=== PATIENT | female | born 2000 ===

== ENCOUNTER 2021-10-14 15:30 | Inpatient (IN) | payer MEDICAID ==
[~2021-10-14] VITALS: Ht 180.3 cm; Wt 53.0 kg
[2021-10-14 21:24] VITALS: BP 118/62
[2021-10-14] MEDS ORDERED: NO HOME MEDS (21:58)
[2021-10-14] MEDS ORDERED: mag hydrox/Alum hydrox/simeth 30ml oral suspension PO PRN (22:00)
[2021-10-14] MEDS ORDERED: magnesium hydroxide 30ml (MOM) UD suspension PO PRN (22:00)
[2021-10-14] MEDS ORDERED: loperamide 2mg capsule PO PRN (22:00)
[2021-10-14] MEDS ORDERED: acetaminophen 325mg tablet PO PRN (22:00)
[2021-10-14] MEDS: LORazepam 1 MG tablet PO PRN (22:12)
[2021-10-14] MEDS: traZODone 50mg tablet PO PRN (22:12)
[2021-10-14] MEDS: NICOTINE POLACRILEX 2 MG LOZENGE BC PRN (22:19)
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
[2021-10-15 08:00] VITALS: BP 130/83
[2021-10-15] MEDS: nicotine 21mg patch - 24 hr TD SCH (08:18)
[2021-10-15 09:29] VITALS: BP 130/83
[2021-10-15] MEDS: LORazepam 1 MG tablet PO PRN ×2 (11:29→20:10)
--- NOTE | 2021-10-15 11:29 | NUR ---
Malnutrition consult: Pt unsure of wt loss though with decreased appetite per malnutrition risk screen with RN. Current BMI is underweight using scaled wt of 53 kg, though no wt hx in EMR to assess for any changes in wt. Per physical assessment pt with no decrease in muscle strength or edema. Pending physician notes and documentation of PO intake on regular diet. Unable to fully assess nutrition status at this time. Will f/u once more information is available. Addendum: 10/15/21 at [address] Amended: Links added.
[2021-10-15 12:48] LABS: HEMOGLOBIN A1C 5.5 % (4.5-6.2)
[2021-10-15 12:52] LABS: CHOLESTEROL 107 MG/DL (0-200); HDL CHOLESTEROL 54 MG/DL (35-60); LDL CHOLESTEROL 39 MG/DL (50-100); TRIGLYCERIDES 82 MG/DL (20-135)
[2021-10-15] MEDS ORDERED: ESCITALOPRAM OXALATE 5 MG TABLET PO ONE (14:30)
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
[2021-10-15 18:48] LABS: CLARITY,URINE CLEAR (Clear); COLOR,URINE YELLOW (Yellow); GLUCOSE, URINE NEGATIVE (Neg); KETONES,URINE NEGATIVE (Neg); LEUKOCYTE ESTERASE ,URINE NEGATIVE (Neg); NITRITES, URINE NEGATIVE (Neg); OCCULT BLOOD,URINE TRACE-INTACT (Neg); PROTEIN,URINE NEGATIVE (Neg); UROBILINOGEN,URINE 0.2 E.U/dL (0.2-1.0)
[2021-10-15 18:59] LABS: UA COLLECTION TYPE CLN CATCH MIDSTREAM
[2021-10-15 19:02] VITALS: BP 112/71
[2021-10-15 19:04] LABS: RBC,URINE 0-2 /HPF (0-2); WBC,URINE 0-4 /HPF (0-4)
[2021-10-15 19:05] LABS: BACTERIA,URINE FEW /HPF (Neg); MUCUS STRANDS NONE SEEN /LPF (Neg); SQUAMOUS EPITHELIAL CELL,UR FEW /LPF (FEW)
[2021-10-15] MEDS: traZODone 50mg tablet PO PRN (20:09)
[2021-10-15] MEDS: acetaminophen 325mg tablet PO PRN (20:10)
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
[2021-10-16] MEDS: nicotine 21mg patch - 24 hr TD SCH (07:33)
[2021-10-16] MEDS: ESCITALOPRAM OXALATE 5 MG TABLET PO SCH (07:34)
[2021-10-16] MEDS: LORazepam 1 MG tablet PO PRN ×3 (07:43→23:28)
[2021-10-16 08:00] VITALS: BP 124/86
[2021-10-16] MEDS: NICOTINE POLACRILEX 2 MG LOZENGE BC PRN ×2 (14:07→22:11)
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
[2021-10-16 19:20] VITALS: BP 130/80
[2021-10-16] MEDS: traZODone 50mg tablet PO PRN (20:41)
[2021-10-17] MEDS: acetaminophen 325mg tablet PO PRN ×2 (00:12→18:58)
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
[2021-10-17 08:00] VITALS: BP 104/73
[2021-10-17] MEDS: ESCITALOPRAM OXALATE 5 MG TABLET PO SCH (08:11)
[2021-10-17] MEDS: nicotine 21mg patch - 24 hr TD SCH (08:12)
[2021-10-17] MEDS: LORazepam 1 MG tablet PO PRN ×3 (08:20→23:06)
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
[2021-10-17] MEDS: NICOTINE POLACRILEX 2 MG LOZENGE BC PRN (18:58)
[2021-10-17 19:31] VITALS: BP 126/69
[2021-10-17] MEDS: traZODone 50mg tablet PO PRN (20:32)
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
--- NOTE | 2021-10-18 07:38 | NUR ---
Initial: Pt admitted w/ major depressive disorder per EMR. Currently on Regular diet w/ mostly 100% intake of meals meeting needs at this time. [facility] 10/16 w/ PRN bowel care available. No nutrition intervention implemented at this time, will continue to monitor. Recs: 1. Continue Regular diet as tolerated 2. Bowel care PRN 3. Weekly wts Addendum: 10/18/21 at [address] Amended: Links added.
[2021-10-18] MEDS: ESCITALOPRAM OXALATE 5 MG TABLET PO SCH (08:29)
[2021-10-18] MEDS: nicotine 21mg patch - 24 hr TD SCH (08:29)
[2021-10-18 08:41] VITALS: BP 123/63
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
[2021-10-18] MEDS: LORazepam 1 MG tablet PO PRN ×2 (11:24→21:41)
--- NOTE | 2021-10-18 14:16 | NUR ---
CM-Pre-dcp Presenting Issues: Pt's Probable Cause Hearing is , pt plans on contesting. Interventions: Clinician met w/pt provided psychoed re the Probable Cause Hearing and its purpose, pt expressed desire to attend the hearing. Clinician also engaged pt in pre-dcp activities per discussion, pt plans on returning to her parents' home in [place] and connect w/[facility] for services. Clinician provided info re services offer by [facility] highlighting [facility] services, pt agreed to a referral to [facility] services. Clinician received verbal consent from pt to contact step-mom and engage her in dcp activities. Clinician had t/c w/step-mom, per t/c step-mom would like pt to rt home w/family (dad, stepmom & 2 sibs). Step mom will assist pt in establishing PMD services in [place], both parents will support pt continued MH services w/[facility], step-mom will provide transportation home. Clinician had t/c with [place] from [facility], per t/c pt will be able to access services even w/o active MediCal in [facility], [place] will schedule post-hospital services w/[facility] team when pt's ready to d/c. Plan: Clinician will continue to engage pt, family & [facility] in dcp activities. MARY ANN HopsonW Addendum: 10/18/21 at 1508 by Lily Reed SS Amended: Links added.
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
[2021-10-18 19:55] VITALS: BP 130/68
[2021-10-18] MEDS: traZODone 50mg tablet PO PRN (20:32)
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
[2021-10-19] MEDS: ESCITALOPRAM OXALATE 5 MG TABLET PO SCH (07:26)
[2021-10-19] MEDS: acetaminophen 325mg tablet PO PRN (07:27)
[2021-10-19 07:54] VITALS: BP 116/76
[2021-10-19] MEDS: nicotine 21mg patch - 24 hr TD SCH (08:00)
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
[2021-10-19] MEDS ORDERED: traZODone 50mg tablet PO PRN (19:40)
[2021-10-19 19:52] VITALS: BP 130/77
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
[2021-10-20 07:15] VITALS: BP 130/81
[2021-10-20 07:23] VITALS: BP 130/81
[2021-10-20] MEDS: ESCITALOPRAM OXALATE 5 MG TABLET PO SCH (07:41)
[2021-10-20] MEDS: nicotine 21mg patch - 24 hr TD SCH (08:00)
[2021-10-20] MEDS ORDERED: ARIP2TAB20 PO (11:48)
[2021-10-20] MEDS ORDERED: ESCI-8 PO (11:48)
[2021-10-20] MEDS ORDERED: TRAZ-251 PO (11:48)
--- NOTE | 2021-10-20 12:50 | NUR ---
DISCHARGE NOTE Pt was discharged to home with step mother on 10/20/21 at 12:35 in stable condition. Pt inventory was complete, all discharge paperwork was signed. Follow up was reiterated and confirmed.
== END 2021-10-20 12:35 | disposition home or self-care (01) | DRG 751 ==
LOC: ADULT MH 15:30
PROVIDERS: ADMIT Psychiatry & Neurology Psychiatry; ATTEND Psychiatry & Neurology Psychiatry
DX: F33.3 Major depressive disorder, recurrent, severe with psychotic symptoms (principal); R45.851 Suicidal ideations; F41.9 Anxiety disorder, unspecified; F60.9 Personality disorder, unspecified; F10.20 Alcohol dependence, uncomplicated; J45.909 Unspecified asthma, uncomplicated; F15.20 Other stimulant dependence, uncomplicated; F12.10 Cannabis abuse, uncomplicated; F17.210 Nicotine dependence, cigarettes, uncomplicated; Z71.6 Tobacco abuse counseling
CPT/HCPCS: 36415; 80061; 81001; 83036; 87081